=== PATIENT | female | born 1945 | race Caucasian/White ===

== ENCOUNTER → 2024-03-27 | Outpatient (CLI) | payer MEDICARE ==
[~2024-03-27] MED LIST: GADOTERATE MEGLUMINE 10 MMOL/20 ML VIAL IV ONE
--- NOTE | 2024-03-27 10:57 | HMCIMG ---
MRCP(ABDWWO)CHOLANGIOPANCREATO HISTORY: Abnormal weight loss COMPARISON: None TECHNIQUE: MRI of the abdomen was performed utilizing multiple pulse sequences in axial, coronal and sagittal planes. Patient was given 12 cc of Clariscan through intravenous route. MRCP was obtained. FINDINGS: No pleural effusion is seen bilaterally. Liver measures 14 cm. Spleen, pancreas are unremarkable. Adrenal gland is not well visualized. There is scoliosis. There is mild intrahepatic ductal dilatation. Common duct is mildly dilated measuring 6.6 mm. Filling defects are suspected within the common duct may be related to small gallstones versus sludge material. There is left renal cyst anteriorly measuring 2.2 cm. There is no evidence of adenopathy or ascites. No hydronephrosis is seen. IMPRESSION: 1. Mild intrahepatic ductal dilatation. Common duct is borderline dilated measuring 6.6 mm.
== END | disposition home or self-care (01) ==
LOC: RAH 08:32
PROVIDERS: ATTEND Internal Medicine
DX: N28.1 Cyst of kidney, acquired (principal); K76.89 Other specified diseases of liver; R10.11 Right upper quadrant pain; R63.4 Abnormal weight loss; K80.50 Calculus of bile duct without cholangitis or cholecystitis without obstruction; M41.84 Other forms of scoliosis, thoracic region
CPT/HCPCS: 74183; A9575

== ENCOUNTER 2024-04-24 08:44 | Emergency (ER) | payer MEDICARE ==
[~2024-04-24] VITALS: Ht 175.3 cm; Wt 49.5 kg
[2024-04-24 10:05] LABS: CREATININE 0.7 mg/dL (0.5-1.0); POTASSIUM 4.5 mmol/L (3.5-5.1)
[2024-04-24 10:07] LABS: BASOPHILS # (AUTO) 0.04 K/uL (0.00-0.20); BASOPHILS % (AUTO) 0.4 % (0.0-5.0); EOSINOPHILS # (AUTO) 0.05 K/uL (0.00-0.70); EOSINOPHILS % (AUTO) 0.5 % (0.0-8.0); HEMATOCRIT 39.8 % (36-48); IMMATURE GRANULOCYTE ABSOLUTE 0.03 K/uL (0-1); LYMPHOCYTES # (AUTO) 1.7 K/uL (1.0-4.8); LYMPHOCYTES % (AUTO) 18.2 % (21.0-51.0); MEAN CORPUSCULAR HEMOGLOBIN 31.2 pg (27.0-33.0); MEAN CORPUSCULAR HGB CONC 33.2 g/dL (32.0-36.0); MEAN CORPUSCULAR VOLUME 94.1 fL (79-99); MONOCYTES # (AUTO) 0.3 K/uL (0.1-1.0); MONOCYTES % (AUTO) 3.6 % (3.0-13.0); NEUTROPHILS # (AUTO) 7.2 K/uL (1.8-7.7); PLATELET COUNT (AUTO) 209 K/uL (130-400); RED BLOOD CELL COUNT(AUTO) 4.23 MIL/uL (4.00-5.50); RED CELL DISTRIBUTION WIDTH 13.2 % (11.0-15.5); WHITE BLOOD COUNT (AUTO) 9.3 K/uL (4.8-10.8)
--- NOTE | 2024-04-24 10:35 | NUR ---
ENEMA GIVEN ORDERED.
--- NOTE | 2024-04-24 11:15 | ERN ---
General Chief Complaint: Other Problems Stated Complaint: RECTAL PAIN Time Seen by MD: 08:47 Source: patient History of Present Illness Initial Comments Patient is a 78-year-old female coming in complaining of generalized rectal pain. Patient states he does not know with the pain is coming from in his hard to pinpoint the pain location. Patient states the symptoms began a couple of days ago and a progressively getting worse. Allergies: Coded Allergies: No Known Drug Allergies (Unverified Allergy, Unknown, 04/24/24) Past Medical History Past Medical History: Diabetes-Type II, Hypertension Past Surgical History: Unknown ROS Dictation CONSTITUTIONAL: No chills, no fever, no weakness, no diaphoresis, no malaise. HEAD/FACE: No signs of trauma. EENT: No eye pain, no blurred vision, no tearing, no double vision, no ear pain, no ear discharge, no nose pain, no nasal congestion, no throat pain, no throat swelling, no mouth pain. RESPIRATORY: No cough, no orthopnea, no SOB, no stridor, no wheezing. CARDIOVASCULAR: No chest pain, no edema, no palpitations, no syncope. GASTROINTESTINAL/ABDOMINAL: No abdominal pain, no constipation, no diarrhea, no nausea, no vomiting. GENITOURINARY: No abnormal discharge, no dysuria, no frequent urination, no hematuria. No complaints of pain in the genitals. MUSCULOSKELETAL: No back pain, no gout, no joint pain, no joint swelling, no muscle pain, no muscle stiffness, no neck pain. INTEGUMENTARY: No change in color, no change in hair/nails, no dryness, no lesion, no lumps, no rash. NEUROLOGICAL/PSYCH: No anxiety, not depressed, no emotional problem, no headache, no numbness, no pre-existing deficit, no history of seizures, no tremors, no weakness. HEMATOLOGIC/LYMPHATIC: Not anemic, no history of blood clots, no apparent b leeding, no bruising, glands not swollen. All Systems Negative, Except as Noted. Physical Exam Physical Exam Dictation VITAL SIGNS: Reviewed. GENERAL APPEARANCE: Alert, oriented x3, no acute distress, obese. HEAD AND FACE: Non-traumatic. EYES: PERRL, pink conjunctivas, eyelid no trauma, anterior chamber clear. EARS: Pinnas intact and no signs of trauma or erythema. Ear canals clear and no discharge. TMs no erythema. NOSE: No discharge, no bleeding. OROPHARYNX: Mouth normal, teeth no caries, tongue pink. Pharynx clear, no erythema. Tonsils no exudates, no abscesses noted. Mucous membrane moist. NECK: Supple, non-tender, no thyromegaly, no masses, no JVD, no bruits. BREAST: Deferred. CHEST: No tenderness, no crepitus, no paradoxical movement, no retractions. LUNGS: Clear, well-ventilated, symmetric, no rales, no wheezing, no rhonchi, no stridor, good breath sounds bilaterally. HEART: Regular rate, regular rhythm, no murmur, no gallops. VASCULAR: No peripheral edema. ABDOMEN: Soft, positive bowel sounds, nondistended, no guarding, nontender, no rebound, no masses no hepatomegaly, no splenomegaly, no Romero's sign, no hernias. RECTAL: Chaperoned by nurse, rectal area covered with cream, no rectal exam there is stool in the rectum GENITAL: Deferred. NEUROLOGICAL: Normal speech, gross motor function intact, gross sensory function intact. MUSCULOSKELETAL: Neck nontender, full range of motion, back nontender, full range of motion. EXTREMITIES: Nontender, full range of motion. SKIN: Color pink, dry, no turgor, no rash, no lacerations, no abrasions, no contusions. LYMPHATICS: Deferred. Results Laboratory and Microbiology Lab and Micro Result Laboratory Tests Test 04/24/24 09:40 White Blood Count 9.3 K/uL (4.8-10.8) Red Blood Count 4.23 MIL/uL (4.00-5.50) Hemoglobin 13.2 g/dL (12.0-16.0) Hematocrit 39.8 % (36-48) Mean Corpuscular Volume 94.1 fL (79-99) Mean Corpuscular Hemoglobin 31.2 pg (27.0-33.0) Mean Corpuscular Hemoglobin Concent 33.2 g/dL (32.0-36.0) Red Cell Distribution Width 13.2 % (11.0-15.5) Platelet Count 209 K/uL (130-400) Mean Platelet Volume 9.2 fL (7.5-10.5) Immature Granulocyte % (Auto) 0.3 % (0-1) Neutrophils (%) (Auto) 77.0 % (40.0-77.0) Lymphocytes (%) (Auto) 18.2 % (21.0-51.0) L Monocytes (%) (Auto) 3.6 % (3.0-13.0) Eosinophils (%) (Auto) 0.5 % (0.0-8.0) Basophils (%) (Auto) 0.4 % (0.0-5.0) Neutrophils # (Auto) 7.2 K/uL (1.8-7.7) Lymphocytes # (Auto) 1.7 K/uL (1.0-4.8) Monocytes # (Auto) 0.3 K/uL (0.1-1.0) Eosinophils # (Auto) 0.05 K/uL (0.00-0.70) Basophils # (Auto) 0.04 K/uL (0.00-0.20) Absolute Immature Granulocyte (auto 0.03 K/uL (0-1) Nucleated Red Blood Cells 0.0 % (0.0-0.19) Sodium Level 139 mmol/L (136-145) Potassium Level 4.5 mmol/L (3.5-5.1) Chloride Level 103 mmol/L (101-111) Carbon Dioxide Level 28 mmol/L (21-32) Blood Urea Nitrogen 17 mg/dL (7-18) Creatinine 0.7 mg/dL (0.5-1.0) Glomerular Filtration Rate Calc 89 mL/min (>90) Random Glucose 96 mg/dL (70-105) Total Calcium 8.8 mg/dL (8.5-10.1) Labs Reviewed?: Yes MDM MDM: Differential diagnosis: Rectal pain, constipation Patient is a 78-year-old female coming in to be evaluated for rectal pain. Per she has been taking Imodium due to recommendation by a pharmacist. On physical exam stool burden in the rectal vault. Enema was given patient states her symptoms improved significantly. Patient will be discharged with laxatives I advised her appropriate follow up with PCP. They do have a camera systems engineer visit after discharged from ER which was set up a week ago. I advised her to follow up with an appointment and to continue taking medication I have prescribed as well as diet modification which includes increased fiber and water intake. ED Course Orders Procedure Category Date Status Time Cbc With Differential LAB 04/24/24 Complete 09:09 Basic Metabolic Panel LAB 04/24/24 Complete 09:09 Enema Instructions CPOE 04/24/24 Transmitted 09:09 Vital Signs Date Time Temp Pulse Resp B/P (MAP) Pulse Ox O2 Delivery O2 Flow Rate FiO2 04/24/24 09:00 97.5 68 18 118/44 98 Room Air* 0 21 04/24/24 08:47 97.9 68 16 118/44 98 Room Air 0 04/24/24 08:47 97.9 68 16 118/44 98 Room Air* 0 21 DX & DISP Disposition: Discharge Departure Impression: Primary Impression: Constipation Condition: Stable Scripts Lactulose (Lactulose) 10 Gram/15 Ml Solution 30 ML PO BID for constipation, #500 ML 0 Refills Prov: LATASHA MARTIN MD 04/24/24 Additional Instructions: FOLLOW-UP WITH PRIMARY CARE PROVIDER IN 1 TO 2 DAYS. TAKE MEDICATIONS DIRECTED HERE IN THE EMERGENCY ROOM. OKAY TO CONTINUE HOME MEDICATIONS UNLESS OTHERWISE DISCUSSED DURING YOUR VISIT IN THE EMERGENCY ROOM TODAY. RETURN TO YOUR NEAREST EMERGENCY ROOM IF SYMPTOMS WORSEN OR IF THERE IS NO IMPROVEMENT. CALL 911 IF YOU NEED IMMEDIATE ASSISTANCE. TAKE TYLENOL VJGN-LDE-LENCFIM NEEDED AND IF NO CONTRAINDICATIONS ARE PRESENT. INCREASE ORAL HYDRATION. A WOUND CULTURE OR URINE CULTURE WAS ORDERED HERE IN THE EMERGENCY ROOM DEPARTMENT PLEASE FOLLOW-UP WITH PRIMARY CARE PROVIDER AND ADVISE THEM TO GET REPEAT PORTS FROM OUR FACILITY. IF YOU HAD ANY POLI WRAP/SPLINTS THAT WERE APPLIED HERE, PLEASE DO NOT REMOVE THEM UNTIL YOU SEE YOUR PRIMARY CARE OR SPECIALTY. Referrals: Referrals: SELF,REFERRAL (PCP) SHANNON STEINBERG MD Time of Disposition: 11:49 LATASHA MARTIN MD Apr 24, 2024 11:15
--- NOTE | 2024-04-24 11:43 | NUR ---
PT HAD A LARGE BM. SHE FEELS MORE COMFORTABLE.
[2024-04-24] MEDS ORDERED: LACT10SO85 PO (11:50)
[2024-04-24 11:52] VITALS: BP 108/68; PULSE 78; RESP 18; TEMP 97.5; O2SAT 98
== END 2024-04-24 12:13 | disposition home or self-care (01) ==
LOC: EDH 08:44
DX: K59.00 Constipation, unspecified (principal); E11.9 Type 2 diabetes mellitus without complications; I10 Essential (primary) hypertension
CPT/HCPCS: 36415; 80048; 85025; 99284

== ENCOUNTER 2024-05-12 09:37 | Emergency (ER) | payer MEDICARE ==
[~2024-05-12] VITALS: Ht 175.3 cm; Wt 46.7 kg
[~2024-05-12 09:37] MED LIST changes: -GADOTERATE MEGLUMINE 10 MMOL/20 ML VIAL IV ONE; +LACT10SO85 PO
--- NOTE | 2024-05-12 10:27 | ERN ---
ED Note History of Present Illness Stated Complaint: LUMP/MASS TO RT HIP Chief Complaint: Other Problems Time Seen by MD: 10:02 Dictation: PATIENT IS A 78-YEAR-OLD FEMALE HERE WITH A LUMP MASS AND A FLUID-FILLED LESION TO TH RIGHT LATERAL HIP SHE HAS HAD FOR APPROXIMATELY THREE WEEKS. SHE STATES IT IS PAINFUL TO TOUCH. SHE STATES SHE HAS ALREADY SHOWN IT TO DR. LANDY FERRELL, SURGEON AT [facility] AND HE REFERRED HER TO A STACK YIELD ENGINEER'S THEY SAID THEY SAW TODAY WHO TOLD HIM TO COME TO THE EMERGENCY ROOM. WAS UPSET BECAUSE WE DID NOT HAVE THE CT SCANS FROM [facility] I TOLD HIM THAT WE WERE NOT FEEL HE 81 WITHOUT HOSPITAL. PATIENT DENIES FEVER CHILLS NAUSEA VOMITING. Allergies: Coded Allergies: No Known Drug Allergies (Unverified Allergy, Unknown, 04/24/24) Home Meds Active Scripts Clindamycin HCl (Clindamycin HCl) 300 Mg Capsule, 1 CAP PO QID for 10 Days, #40 CAP 0 Refills Prov:LASHAWN BOSCH NP 05/12/24 Lactulose (Lactulose) 10 Gram/15 Ml Solution, 30 ML PO BID for constipation, #500 ML 0 Refills Prov:LATASHA MARTIN MD 04/24/24 Past Medical History Past Medical History: Diabetes-Type II, Hypertension Surgical History: Appendectomy, Hysterectomy, Cholecystectomy Surgical History Other: HIP, HERNIA, ABD SX History: Not Applicable RN Note Reviewed/Agreed w/PFSH: Yes Review of System Dictation CONSTITUTIONAL: NEGATIVE EXCEPT FOR HPI HEAD/FACE: NEGATIVE EXCEPT FOR HPI EENT: NEGATIVE EXCEPT FOR HPI RESPIRATORY: NEGATIVE EXCEPT FOR HPI GASTROINTESTINAL/ABDOMINAL: NEGATIVE EXCEPT FOR HPI GENITOURINARY: NEGATIVE EXCEPT FOR HPI MUSCULOSKELETAL: NEGATIVE EXCEPT FOR HPI INTEGUMENTARY: NEGATIVE EXCEPT FOR HPI FLUID FILLED LESION TO RIGHT LATERAL LOWER ABDOMINAL AREA/WALL TENDER TO PALPATION NEUROLOGICAL/PSYCH: NEGATIVE EXCEPT FOR HPI HEMATOLOGIC/LYMPHATIC: NEGATIVE EXCEPT FOR HPI ALL SYSTEMS NEGATIVE, EXCEPT NOTED ABOVE. 13 POINT REVIEW OF SYSTEMS ASSESSED AND ALL NEGATIVE EXCEPT FOR ABOVE. Initial Vital Sign VS Vital Signs Date Time Temp Pulse Resp B/P (MAP) Pulse Ox O2 Delivery O2 Flow Rate FiO2 05/12/24 09:38 97.7 86 16 101/67 0 Room Air 0 05/12/24 12:00 21 Physical Exam Dictation VITAL SIGNS REVIEWED GENERAL APPEARANCE: ALERT, ORIENTED X 3, MILD ACUTE DISTRESS, WELL DEVELOPED, NOURISHED. HEAD AND FACE: NON-TRAUMATIC. EYES: PERRL, PINK CONJUNCTIVAS, EYELID NO TRAUMA, ANTERIOR CHAMBER WITH ARCUS SENILIS. EARS: PINNAS INTACT AND NO SIGNS OF TRAUMA OR ERYTHEMA EAR CANALS CLEAR AND NO DISCHARGE TM NO ERYTHEMA NOSE: NO DISCHARGE, NO BLEEDING. OROPHARYNX: MOUTH NORMAL, TONGUE PINK, PHARYNX CLEAR,NO ERYTHEMA, TONSILS NO EXUDATES, NO ABSCESSES NOTED, MUCOUS MEMBRANE MOIST NECK: SUPPLE, NON-TENDER, NO THYROMEGALY, NO MASSES, NO JVD, NO BRUITS BREAST:DEFERRED CHEST:NO TENDERNESS, NO CREPITUS, NO PARADOXICAL MOVEMENT, NO RETRACTIONS LUNGS:CLEAR, WELL-VENTILATED, SYMMETRIC, NO RALES, NO WHEEZING, NO RHONCHI, NO STRIDOR, GOOD BREATH SOUNDS BILATERALLY HEART: REGULAR RATE, REGULAR RHYTHM, NO MURMUR, NO GALLOPS VASCULAR: NO PERIPHERAL EDEMA, ABDOMEN: SOFT, POSITIVE BOWEL SOUNDS, NONDISTENDED, NO GUARDING, NONTENDER, NO REBOUND, NO MASSES NO HEPATOMEGALY, NO SPLENOMEGALY, NO KATZ'S SIGN, NO HERNIAS. RECTAL: DEFERRED GENITAL: DEFERRED NEUROLOGICAL: NORMAL SPEECH, MOTOR FUNCTION INTACT, SENSORY FUNCTION INTACT MUSCULOSKELETAL: NECK NONTENDER, FULL RANGE OF MOTION, BACK NONTENDER, FULL RANGE OF MOTION, EXTREMITIES: NONTENDER, FULL RANGE OF MOTION SKIN: COLOR PINK, FOOD FILL LESION WITH TENDERNESS TO THE RIGHT LATERAL LOWER ABDOMINAL WALL. LYMPHATIC: DEFERRED Results (Laboratory/Radiology) Laboratory/Radiology Laboratory Tests Test 05/12/24 11:07 White Blood Count 8.5 K/uL (4.8-10.8) Red Blood Count 4.56 MIL/uL (4.00-5.50) Hemoglobin 14.4 g/dL (12.0-16.0) Hematocrit 43.2 % (36-48) Mean Corpuscular Volume 94.7 fL (79-99) Mean Corpuscular Hemoglobin 31.6 pg (27.0-33.0) Mean Corpuscular Hemoglobin Concent 33.3 g/dL (32.0-36.0) Red Cell Distribution Width 14.1 % (11.0-15.5) Platelet Count 250 K/uL (130-400) Mean Platelet Volume 9.3 fL (7.5-10.5) Nucleated Red Blood Cells 0.0 % (0.0-0.19) Sodium Level 136 mmol/L (136-145) Potassium Level 4.9 mmol/L (3.5-5.1) Chloride Level 101 mmol/L (101-111) Carbon Dioxide Level 30 mmol/L (21-32) Blood Urea Nitrogen 16 mg/dL (7-18) Creatinine 0.6 mg/dL (0.5-1.0) Glomerular Filtration Rate Calc 92 mL/min (>90) Random Glucose 102 mg/dL (70-105) Total Calcium 9.4 mg/dL (8.5-10.1) Exam Type: US SOFT TISSUE ABD/ABD WALL Clinical Information: RIGHT LATERAL HIP SKIN LESION/MASS Comparison: None Findings and impression: Complex fluid collection right lateral hip at site of clinical concern measuring 3.5 x 4.5 cm which may represent a hematoma or abscess. No other abnormalities. Labs Reviewed?: Yes ED Course ED Course Orders Procedure Category Date Status Time Us Soft Tissue US 05/12/24 Resulted Abd/Abd Wall 10:25 Cbc Without LAB 05/12/24 Complete Differential 10:25 Basic Metabolic Panel LAB 05/12/24 Complete 10:25 Lidocaine Hcl 1% 20ml PHA 05/12/24 Complete Vial (Lidocaine Hc 12:00 Aerobic Culture NEDRA 05/12/24 In Process 11:46 Clindamycin 150mg Cap PHA 05/12/24 Complete (Cleocin 150mg Cap 12:30 Current Medications Medications (Trade) Dose Ordered Sig/Jessica Route PRN Reason Start Time Stop Time Status Last Admin Dose Admin Clindamycin HCl (Cleocin 150mg Cap) 600 mg ONCE ONCE PO 05/12/24 12:30 05/12/24 12:31 DC 05/12/24 12:59 Lidocaine HCl (Lidocaine HCl 1% 20ml Vial) ONCE INJ 05/12/24 12:00 05/12/24 13:12 DC 05/12/24 11:57 Vital Signs Date Time Temp Pulse Resp B/P (MAP) Pulse Ox O2 Delivery O2 Flow Rate FiO2 05/12/24 12:00 97.7 86 16 101/67 97 Room Air* 0 21 05/12/24 09:38 97.7 86 16 101/67 0 Room Air 0 Medical Decision Making MDM MEDICAL DISCHARGE MAKING BASED ON LABS AND ULTRASOUND OF ABDOMINAL WALL LESION I AND D PERFORMED ON LESION, ANTIBIOTICS WERE INITIATED AND CULTURE SENT PATIENT TOLERATED WELL TOLD FOLLOW UP WITH ONE OF THE PRIMARY CARE DOCTORS ON THE LIST PROVIDED YOU IN THE NEXT SEVERAL Procedure Procedure Dictation: PROCEDURE EXPLAINED TO PATIENT SHE AGREED TO PROCEED PATIENT HAS A3 X 5 X 4 CM ABSCESS TO RIGHT LOWER ABDOMINAL WALL. PREPPED STERILELY USED4 ML 1% LIDOCAINE PLAIN FOR LOCAL ANESTHETIC 11. BLADE WAS USED TO MAKE3 CM INCISION DRAINED APPROXIMATELY 10 ML PURULENT DRAINAGE LOCULATIONS WERE EXPLORED, CULTURES WERE OBTAINED NO ACTIVE BLEEDING AND PATIENT TOLERATED WELL PATIENT AND MADE AWARE THAT THE LESION IS NOT FLAT AND THERE IS SOME UNDERLYING ERYTHEMA TENDERNESS DX & DISP Disposition: Discharge Departure Impression: Primary Impression: Abdominal wall abscess Condition: Stable Scripts Clindamycin HCl (Clindamycin HCl) 300 Mg Capsule 1 CAP PO QID for 10 Days, #40 CAP 0 Refills Prov: LASHAWN BOSCH NP 05/12/24 Additional Instructions: FOLLOW-UP WITH PRIMARY CARE PROVIDER IN 1 TO 2 DAYS. TAKE MEDICATIONS DIRECTED HERE IN THE EMERGENCY ROOM. OKAY TO CONTINUE HOME MEDICATIONS UNLESS OTHERWISE DISCUSSED DURING YOUR VISIT IN THE EMERGENCY ROOM TODAY. RETURN TO YOUR NEAREST EMERGENCY ROOM IF SYMPTOMS WORSEN OR IF THERE IS NO IMPROVEMENT. CALL 911 IF YOU NEED IMMEDIATE ASSISTANCE. TAKE TYLENOL OR MOTRIN [id number] NEEDED AND IF NO CONTRAINDICATIONS ARE PRESENT. INCREASE ORAL HYDRATION. A WOUND CULTURE OR URINE CULTURE WAS ORDERED HERE IN THE EMERGENCY ROOM DEPARTMENT PLEASE FOLLOW-UP WITH PRIMARY CARE PROVIDER AND ADVISE THEM TO GET REPEAT PORTS FROM OUR FACILITY. IF YOU HAD ANY POLI WRAP/SPLINTS THAT WERE APPLIED HERE, PLEASE DO NOT REMOVE THEM UNTIL YOU SEE YOUR PRIMARY CARE OR SPECIALTY. TAKE ANTIBIOTICS DIRECTED UNTIL GONE. OKAY TO SHOWER, THEN COVER INCISION LINE WITH DRESSING. FOLLOW UP WITH ONE OF THE DOCTORS ON THE LIST PROVIDED YOU IN THE NEXT 2-3 DAYS. , CALL FOR AN APPOINTMENT Referrals: SELF,REFERRAL (PCP) Time of Disposition: 12:33 I have reviewed the case, and I agree with, Diagnosis and Plan I performed the substantive portion of the visit. I have reviewed and personally made and approve the management plan that is documented in the notes by myself or the PASTORA. I acknowledge full responsibility for the patient's management plan. LASHAWN BOSCH NP May 12, 2024 10:27 JAZZY GUTIERREZ MD May 12, 2024 16:01
--- NOTE | 2024-05-12 11:12 | HMCIMG ---
Exam Type: US SOFT TISSUE ABD/ABD WALL Clinical Information: RIGHT LATERAL HIP SKIN LESION/MASS Comparison: None Findings and impression: Complex fluid collection right lateral hip at site of clinical concern measuring 3.5 x 4.5 cm which may represent a hematoma or abscess. No other abnormalities.
[2024-05-12 11:30] LABS: HEMATOCRIT 43.2 % (36-48); MEAN CORPUSCULAR HEMOGLOBIN 31.6 pg (27.0-33.0); MEAN CORPUSCULAR HGB CONC 33.3 g/dL (32.0-36.0); MEAN CORPUSCULAR VOLUME 94.7 fL (79-99); RED BLOOD CELL COUNT(AUTO) 4.56 MIL/uL (4.00-5.50); RED CELL DISTRIBUTION WIDTH 14.1 % (11.0-15.5); WHITE BLOOD COUNT (AUTO) 8.5 K/uL (4.8-10.8)
[2024-05-12 11:41] LABS: CREATININE 0.6 mg/dL (0.5-1.0); POTASSIUM 4.9 mmol/L (3.5-5.1)
[2024-05-12] MEDS: LIDOCAINE HCL 1% 20 ML VIAL INJ SCH (11:57)
[2024-05-12 12:00] VITALS: BP 101/67; PULSE 86; RESP 16; TEMP 97.7; O2SAT 97
[2024-05-12] MEDS ORDERED: CLIN-141 PO (12:33)
--- NOTE | 2024-05-12 12:36 | NUR ---
ABSCESS WOUND DRESSED, PT TOLERATED WELL
[2024-05-12] MEDS: CLINDAMYCIN 150 MG CAP PO ONE (12:59)
== END 2024-05-12 13:12 | disposition home or self-care (01) ==
LOC: EDH 09:37
DX: L02.211 Cutaneous abscess of abdominal wall (principal); E11.9 Type 2 diabetes mellitus without complications; I10 Essential (primary) hypertension; Z90.49 Acquired absence of other specified parts of digestive tract; Z90.710 Acquired absence of both cervix and uterus; Z79.899 Other long term (current) drug therapy
CPT/HCPCS: 10060; 36415; 76705; 80048; 85027; 87070; 87086; 87186; 99284